=== PATIENT | male | born 1945 | race Hispanic/Latino ===

== ENCOUNTER 2016-05-13 11:29 | Emergency (ER) | payer MEDICAID ==
[~2016-05-13] VITALS: Ht 160 cm; Wt 79.5 kg
[~2016-05-13 11:29] MED LIST: ASPI-628 PO; CALC500T3 PO; CHOL100043 PO; DOCU-41 PO; GLIP-176 PO; HYDR-4003 PO; IBUP200T48 PO; INSU100I SUBQ; INSU100V7 SUBQ; LEVO50TA6 PO; LISI-571 PO; LOVA20TA PO; MECL-107 PO; NEOM10DR11 OT; SEVE800T7 PO
--- NOTE | 2016-05-13 11:31 | ED.REPORT ---
HPI-General Illness Date of Service May 13, 2016 ED Provider: Dr. Burnett 70 year old male with a history of hypothyroid, diabetes and ESRD on hemodialysis (last dialysis yesterday) who presents to the ED via EMS after he was found unresponsive by his this morning about 1 hour ago. EMS noted the patient to have a GCS 9. Initial BGL 28 increased to 88. No change in mentation. Pt was also given Narcan with no effect. VS WNL en route. Pt able to respond to questions upon arrival to the ED. He reports feeling weak and hungry. He denies CP and SOB. Nursing Notes Stated Complaint: UNRESPONSIVE Nursing Notes Reviewed: Yes Allergies: Coded Allergies: No Known Allergies (Verified Allergy, Unknown, 10/27/14) Scheduled Aspirin (Aspir 81) 81 Mg Tablet.dr 81 MG PO DAILY Cholecalciferol (Vitamin D3) (Vitamin D) 1,000 Unit Tablet 1,000 UNIT PO DAILY Glipizide ER (Glipizide XL) 10 Mg Tab.er.24 10 MG PO DAILY Insulin Aspart (NovoLOG U-100 Pen) 100 Unit/Ml Insuln.pen 5 UNIT SUBQ TIDWM SEE ALSO DIFFERENT DOSE FOR BREAKFAST AND LUNCH Insulin Glargine (Lantus U100 Insulin Vial) 100 Unit/Ml Vial 25 UNIT SUBQ DAILY DAILY EVERY MORNING Levothyroxine (Levothyroxine) 50 Mcg Tablet 50 MCG PO DAILY Lisinopril (Lisinopril) 5 Mg Tablet 5 MG PO DAILY Lovastatin (Lovastatin) 20 Mg Tablet 20 MG PO HS Neomy Sulf/Colist Sul/Hc/Thonz (Cortisporin-Tc Ear Susp) 10 Ml Drops.susp 3 DRP OT QID Sevelamer Carbonate (Renvela) 800 Mg Tablet 800 MG PO TID Scheduled PRN Docusate Sodium (Colace) 100 Mg Capsule 100 MG PO BID PRN PRN For Constipation Hydrocodone-Acetaminophen 5-325 mg (Hydrocodone-Acetaminophen 5-325 mg) 1 Each Tablet 1 TABLET PO Q6H PRN PRN For Pain Ibuprofen (Ibuprofen) 200 Mg Tablet 200-400 MG PO QID PRN PRN For Pain Meclizine HCl (Meclizine HCl) 25 Mg Tablet 12.5-25 MG PO Q6 PRN PRN vertigo Miscellaneous Medications Calcium Carbonate (Calcium Carbonate) 500 Mg Tablet 500 MG PO TWO TABLETS TWO TIMES DAILY General Time Seen by MD: 11:31 Chief Complaint Altered mental status Hx Obtained From: Patient, EMS Arrived By: Ambulance Onset Occurred: 1 - 4 hours ago Symptom Duration: Since onset Severity: Current: No pain currently Associated with: Denies: Fever, Shortness of breath Past Medical History Past Medical History Notes: Admit for CP 10/2013 for CP post dialysis - echo nl (EF 65-70%), stress test negative Past Medical History ESRD on hemodialysis Diabetic retinal disease Anemia Blindness Chronic back pain Peripheral neuropathy Reports: Diabetes mellitus, Hyperlipidemia, Hypertension Reports: Kidney disease, Thyroid disease Past Surgical History laminectomy L4-5, L5-S1 Left Arm AV Fistula ORIF right hand Reports: Cataract surgery Reports: Back/neck surgery Smoking History Never Smoker Social History Alcohol Use: Denies alcohol use Drug Use: Denies drug use Review of Systems Full Review of Systems Constitutional: Reports: Weakness - generalized, Denies: Fever Respiratory: Denies: Shortness of breath Cardiovascular: Denies: Chest pain Neurologic: Reports: Change LOC Complete sys rev & neg: except as marked. Physical Exam Vital Signs Vital Signs Date Time Temp Pulse Resp B/P Pulse Ox O2 Delivery O2 Flow Rate FiO2 05/13/16 12:33 63 12 95/51 96 Room Air 05/13/16 11:39 62 14 100 Nasal Cannula 4 05/13/16 11:37 35.4 62 15 119/63 99 Nasal Cannula 2 Initial VS: Reviewed Head / Eyes: Atraumatic, Normocephalic Neck: Supple, Non-tender, Full range of motion Respiratory: Breath sounds normal, Clear to auscultation, No respiratory distress Cardiovascular: Regular rate & rhythm, Heart sounds normal, Intact distal pulses Abdomen / GI: Soft, Non-tender, No guarding, No rebound, No distention Extremities: Vascular intact, Neuro intact, No swelling, No tenderness Skin: Warm, Dry, No cyanosis Neurologic: Alert, Oriented, Nonfocal Psychiatric: Mood/affect normal, Behavior normal, Normal thought content General/Constitutional: Awake, Alert, Cooperative Head / Eyes: Atraumatic, Normocephalic Poor vision Interpretation & Diagnostics Lab Results Interpretation Result Diagram: 05/13/16 1136 05/13/16 1136 Test 05/13/16 11:36 White Blood Count 12.4th/mm3 (3.8-10.1) Red Blood Count 4.25mil/mm3 (4.40-5.80) Hemoglobin 12.8g/dL (13.8-17.2) Hematocrit 37.9% (41.0-50.0) Mean Corpuscular Volume 89.2fL (81-100) Mean Corpuscular Hemoglobin 30.1pg (27.0-35.0) Mean Corpuscular Hemoglobin Concent 33.8% (32.0-37.0) Red Cell Distribution Width 12.5% (12.3-15.4) Platelet Count 183bil/L (150-400) Neutrophils (%) (Auto) 79.2% (40-74) Lymphocytes (%) (Auto) 10.8% (14-46) Monocytes (%) (Auto) 4.8% (4-12) Eosinophils (%) (Auto) 4.1% (0-5) Basophils (%) (Auto) 0.5% (0-3) Sodium Level 141mEq/L (134-144) Potassium Level 4.3mEq/L (3.5-5.2) Chloride Level 97mEq/L (97-108) Carbon Dioxide Level 27mmol/L (18-29) Blood Urea Nitrogen 51mg/dL (8-27) Creatinine 7.04mg/dL (0.76-1.27) Estimat Glomerular Filtration Rate 8mL/min (>59) Glucose Level 117mg/dL (60-99) Calcium Level 8.2mg/dL (8.5-10.1) Total Bilirubin 0.2mg/dL (0.0-1.2) Aspartate Amino Transf (AST/SGOT) 13U/L (0-50) Alanine Aminotransferase (ALT/SGPT) 21U/L (0-44) Alkaline Phosphatase 93U/L (25-160) Total Protein 6.4g/dL (6.4-8.4) Albumin 3.7g/dL (3.4-5.0) Hold Soto Top Tube Received (Received) General Lab Results Interp 1: Labs reviewed X-Ray Chest Interpretation Chest Xray Interpretation: IMPRESSION: Limited study given low lung volumes. Left basilar opacities may represent atelectasis or aspiration/infection. Dictated by: Ana Carrillo M.D. on 05/13/2016 at 11:56 View: Portable, 1 view Interpretation / Wet Read by: Interpret - Radiologist Re-Eval/Medical Decision Time of Eval: 15:03 Patient Status: Condition resolved Re-Evaluation/Progress Note: Patient feels back to normal and wonders why his blood sugar was so low. He said that he has been eating normally. Counseled Regarding: Diagnosis, Lab results, Need for follow-up, When/why to return to ED Discharge & Departure Primary Impression: Hypoglycemia Disposition: Home Discharge Condition All VS Reviewed: Yes Condition: Improved Patient Instructions: Diabetic Hypoglycemia (ED) Additional Instructions: No dangerous cause for your symptoms was discovered. I suspect that your balance of insulin and food intake is mismatched. If you have another low blood sugar event in the next day or 2, I recommend you follow up with your doctor to make sure that your insulin dosing is where it should be. Google Translate No se descubri ninguna causa peligrosa para fransisca sntomas. Sospecho que smith saldo de insulina y la ingesta de alimentos no coinciden. Si tiene otro episodio de bajo nivel de azcar en la tatyana en el da siguiente o 2, le recomiendo que paul un seguimiento con smith mdico para asegurarse de que smith dosis de insulina es donde debera estar. Referrals: Shantel Orellana MD (PCP) Scribe Attestation Portions of this note were transcribed by Laura Ching. I, (Dr. Burnett) personally performed the history, physical exam and medical decision-making; I reviewed and confirmed the accuracy of the information in the transcribed note. Signed by: Laura Ching. 05/13/2016, 1511 copies to: Shantel Orellana MD, Kirk H MD May 13, 2016 11:31 Laura Ching May 13, 2016 14:43
[2016-05-13 11:37] VITALS: BP 119/63; PULSE 62; RESP 15; O2SAT 99
[2016-05-13 11:39] VITALS: RESP 14; O2SAT 100
[2016-05-13 11:45] LABS: BASOPHILS % (AUTO) 0.5 % (0-3); EOSINOPHILS % (AUTO) 4.1 % (0-5); MONOCYTES % (AUTO) 4.8 % (4-12); Mean Corpuscular Hemoglobin 30.1 pg (27.0-35.0); Mean Corpuscular Volume 89.2 fL (81-100); NEUTROPHILS % (AUTO) 79.2 % (40-74); Platelet Count 183 bil/L (150-400)
--- NOTE | 2016-05-13 11:58 | DRSVH ---
PROCEDURE: X-RAY CHEST ONE VIEW, PORTABLE ([id number]) INDICATIONS: altered LOC TECHNIQUE: One view of the chest was acquired. COMPARISON: [facility], CR, XR CHEST 1VW (PORTABLE), 09/10/2015, 10:10. FINDINGS: Surgical changes and devices: None. Lungs and pleura: Lung volumes are low. Patchy opacities are present at the left lung base. There is vascular crowding. Mediastinum: Mediastinal contours appear normal. Heart size is enlarged. Bones and chest wall: No suspicious bony lesions. Overlying soft tissues appear unremarkable. IMPRESSION: Limited study given low lung volumes. Left basilar opacities may represent atelectasis or aspiration/infection. Dictated by: Ana Carrillo M.D. on 05/13/2016 at 11:56 Approved by: Ana Carrillo M.D. on 05/13/2016 at 11:57
[2016-05-13 12:33] VITALS: BP 95/51; PULSE 63; RESP 12; O2SAT 96
[2016-05-13 16:04] VITALS: BP 119/61; PULSE 67; RESP 19; O2SAT 96
== END 2016-05-13 16:05 | disposition home or self-care (01) ==
LOC: EDBD 11:29 → SED 11:29
DX: E11.649 Type 2 diabetes mellitus with hypoglycemia without coma (principal); I12.0 Hypertensive chronic kidney disease with stage 5 chronic kidney disease or end stage renal disease; E11.22 Type 2 diabetes mellitus with diabetic chronic kidney disease; N18.6 End stage renal disease; E11.319 Type 2 diabetes mellitus with unspecified diabetic retinopathy without macular edema; E78.5 Hyperlipidemia, unspecified; E07.9 Disorder of thyroid, unspecified; Z99.2 Dependence on renal dialysis; Z98.49 Cataract extraction status, unspecified eye; Z79.82 Long term (current) use of aspirin; Z79.4 Long term (current) use of insulin

== ENCOUNTER 2016-09-01 18:24 | Emergency (ER) | payer MEDICAID ==
[2016-09-01 18:40] VITALS: BP 93/48; PULSE 71; RESP 16; O2SAT 99
--- NOTE | 2016-09-01 18:53 | ED.REPORT ---
HPI-General Illness Date of Service September 01, 2016 ED Provider: The patient is a 71 year old blind male with history of end-stage renal disease on hemodialysis, diabetes mellitus, hypertension, hyperlipidemia, chronic back pain, and thyroid disease, who was brought to the emergency department by EMS. The patient states earlier today he suddenly became diaphoretic, his blood pressure was low and his blood sugar levels were elevated. His sugar level was over 400. He also felt generally weak and dizzy, and noticed some mild abdominal pain and lower extremity pain. He has extremity pain often related to exercise. En route in the ambulance he noticed a mild headache. At this time he only complains of lower extremity pain. He denies dizziness, chills, palpitations or shortness of breath. He has not had similar symptoms in the past. He has not recently been sick. The patient normally urinates 2 times each day. Nursing Notes Stated Complaint: LOWER FLANK PAIN Chief Complaint: General Complaint Nursing Notes Reviewed: Yes Allergies: Coded Allergies: No Known Allergies (Verified Allergy, Unknown, 10/27/14) Scheduled Aspirin (Aspir 81) 81 Mg Tablet.dr 81 MG PO DAILY Cholecalciferol (Vitamin D3) (Vitamin D) 1,000 Unit Tablet 1,000 UNIT PO DAILY Glipizide ER (Glipizide XL) 10 Mg Tab.er.24 10 MG PO DAILY Insulin Aspart (NovoLOG U-100 Pen) 100 Unit/Ml Insuln.pen 5 UNIT SUBQ TIDWM SEE ALSO DIFFERENT DOSE FOR BREAKFAST AND LUNCH Insulin Glargine (Lantus U100 Insulin Vial) 100 Unit/Ml Vial 25 UNIT SUBQ DAILY DAILY EVERY MORNING Levothyroxine (Levothyroxine) 50 Mcg Tablet 50 MCG PO DAILY Lisinopril (Lisinopril) 5 Mg Tablet 5 MG PO DAILY Lovastatin (Lovastatin) 20 Mg Tablet 20 MG PO HS Neomy Sulf/Colist Sul/Hc/Thonz (Cortisporin-Tc Ear Susp) 10 Ml Drops.susp 3 DRP OT QID Sevelamer Carbonate (Renvela) 800 Mg Tablet 800 MG PO TID Scheduled PRN Docusate Sodium (Colace) 100 Mg Capsule 100 MG PO BID PRN PRN For Constipation Hydrocodone-Acetaminophen 5-325 mg (Hydrocodone-Acetaminophen 5-325 mg) 1 Each Tablet 1 TABLET PO Q6H PRN PRN For Pain Ibuprofen (Ibuprofen) 200 Mg Tablet 200-400 MG PO QID PRN PRN For Pain Meclizine HCl (Meclizine HCl) 25 Mg Tablet 12.5-25 MG PO Q6 PRN PRN vertigo Miscellaneous Medications Calcium Carbonate (Calcium Carbonate) 500 Mg Tablet 500 MG PO TWO TABLETS TWO TIMES DAILY General Time Seen by MD: 18:52 Chief Complaint Multip medical complaints Hx Obtained From: Patient, Spouse, Lead Fabricator, EMS Arrived By: Ambulance Sudden in Onset?: Yes Onset Occurred: 1 - 4 hours ago Symptom Duration: Since onset Location: : Head Quality: Painful Severity: Current: Mild Severity: Maximum: Mild Recent Healthcare: No recent hospitalization, Recent doctor visit Similar Sx Previous: No Past Medical History Past Medical History ESRD on hemodialysis Diabetic retinal disease Anemia Blindness Chronic back pain Peripheral neuropathy Reports: Diabetes mellitus, Hyperlipidemia, Hypertension Reports: Thyroid disease Past Surgical History laminectomy L4-5, L5-S1 Left Arm AV Fistula ORIF right hand Reports: Cataract surgery Reports: Back/neck surgery Family History Noncontributory Smoking History Never Smoker Social History Alcohol Use: Denies alcohol use Drug Use: Denies drug use Other Social History: Good social support, Local resident Ambulatory Status Independent Review of Systems +low blood pressure, elevated blood sugar levels Full Review of Systems Constitutional: Reports: Weakness - generalized, Denies: Chills, Fever Ears / Nose / Throat: Denies: Nasal congestion Respiratory: Denies: Shortness of breath Cardiovascular: Denies: Palpitations GI: Reports: Abdominal pain, Denies: Anorexia, Diarrhea, Nausea, Vomiting Musculoskeletal: Reports: Extremity pain Skin: Reports Diaphoresis Neurologic: Reports: Dizziness, Headache, Weakness Complete sys rev & neg: except as marked. Physical Exam Vital Signs Vital Signs Date Time Temp Pulse Resp B/P Pulse Ox O2 Delivery O2 Flow Rate FiO2 09/01/16 21:18 66 16 115/58 96 Room Air 09/01/16 20:07 67 16 108/56 97 Room Air 101/56 102/56 09/01/16 18:40 36.8 71 16 93/48 99 Room Air Initial VS: Reviewed, Vital signs abnormal Head / Eyes: Atraumatic, Normocephalic, PERRL ENT: Mucous membranes moist, Conjunctiva normal, No scleral icterus Neck: Supple, Non-tender, Full range of motion Respiratory: Breath sounds normal, Clear to auscultation, No respiratory distress Cardiovascular: Regular rate & rhythm, Heart sounds normal, Intact distal pulses Lymphatic: No lymphadenopathy Extremities: Vascular intact, Neuro intact, No swelling, No tenderness Skin: Warm, Dry, No cyanosis Psychiatric: Mood/affect normal, Behavior normal, Normal thought content General/Constitutional: Awake, Alert, Cooperative Abdomen: Atraumatic, Soft, Non-tender, No guarding, No rebound, BS normoactive , No distention, No hernia, No palpable mass, No pulsatile mass Lower Extremity / Pelvis / MS: Neurologic intact, Vascular intact, No edema Decreased hair on lower extremities. Neurologic: Oriented X3, Speech NL, No motor deficits, No sensory deficits, Cerebellar NL, Memory NL Moving all extremities. Interpretation & Diagnostics Lab Results Interpretation Result Diagram: 09/01/16205109/01/161944 Test 09/01/16 19:45 09/01/16 20:13 09/01/16 20:52 Sodium Level 135mEq/L (134-144) Potassium Level 3.7mEq/L (3.5-5.2) Chloride Level 96mEq/L (97-108) Carbon Dioxide Level 26mmol/L (18-29) Blood Urea Nitrogen 20mg/dL (8-27) Creatinine 3.37mg/dL (0.76-1.27) Estimat Glomerular Filtration Rate 19mL/min (>59) Glucose Level 110mg/dL (60-99) Calcium Level 7.6mg/dL (8.5-10.1) Hold Purple Top Tube Received (Received) Hold Blue Top Tube Received (Received) Hold Red Top Tube Received (Received) Hold Soto Top Tube Received (Received) White Blood Count 5.9th/mm3 (3.8-10.1) Red Blood Count 3.59mil/mm3 (4.40-5.80) Hemoglobin 11.6g/dL (13.8-17.2) Hematocrit 34.1% (41.0-50.0) Mean Corpuscular Volume 95.0fL (81-100) Mean Corpuscular Hemoglobin 32.3pg (27.0-35.0) Mean Corpuscular Hemoglobin Concent 34.0% (32.0-37.0) Red Cell Distribution Width 12.6% (12.3-15.4) Platelet Count 159bil/L (150-400) Neutrophils (%) (Auto) 60.6% (40-74) Lymphocytes (%) (Auto) 21.6% (14-46) Monocytes (%) (Auto) 8.7% (4-12) Eosinophils (%) (Auto) 8.1% (0-5) Basophils (%) (Auto) 0.8% (0-3) ECG Interpretation ECG Interpretation: Sinus rhythm with a rate of 66 Time: 20:51 Interpreted by: ED physician Re-Eval/Medical Decision Med Decision/Clinical Course The patient's description of his symptoms and the fact that EMS could not get a blood pressure initially consistent with near syncope. The patient was feeling back to baseline upon arrival here although he still had a little bit of headache, he said it was always mild. The partial septic differential diagnoses considered were sepsis, hypoglycemia, anemia, dysrhythmia, and hypovolemia. Source of Hx: Old records, EMS, Family Time of Eval: 20:09 Re-Evaluation/Progress Note: The patient passed his road test. He is feeling much better. Counseled Regarding: Diagnosis, Lab results, Need for follow-up, When/why to return to ED Discharge & Departure Primary Impression: Near syncope Disposition: Home Discharge Condition All VS Reviewed: Yes Condition: Stable Additional Instructions: Thank you for entrusting us with your care today. Your labs today are reassuring. You symptoms may have been related to having too much fluid taken off at dialysis. Continue taking your regularly prescribed medications. Followup with your regular doctor next week for further evaluation. Seek care sooner for any new or concerning symptoms. Referrals: Shantel Orellana MD (PCP) Scribalexandra Attestation Portions of this note were transcribed by Zo Vasquez. I, Dr. Whitney personally performed the history, physical exam and medical decision-making; I reviewed and confirmed the accuracy of the information in the transcribed note. Signed by: Heavenly Zamorano, 09/01/2016 at 2115. copies to: Shantel Orellana MD, Jena M MD September 01, 2016 18:53 Zo Vasquez September 01, 2016 19:05
[2016-09-01] MEDS ORDERED: 0.9% Sodium Chloride 250 ML IV ONE (19:20)
[2016-09-01 20:07] VITALS: BP_SYST 101; BP_SYST 102; BP_SYST 108; BP_DIAS 56; PULSE 67; RESP 16; O2SAT 97
[2016-09-01 20:56] LABS: BASOPHILS % (AUTO) 0.8 % (0-3); EOSINOPHILS % (AUTO) 8.1 % (0-5); MONOCYTES % (AUTO) 8.7 % (4-12); Mean Corpuscular Hemoglobin 32.3 pg (27.0-35.0); NEUTROPHILS % (AUTO) 60.6 % (40-74); Platelet Count 159 bil/L (150-400)
[2016-09-01 21:18] VITALS: BP 115/58; PULSE 66; RESP 16; O2SAT 96
== END 2016-09-01 21:19 | disposition home or self-care (01) ==
LOC: SED 18:24 → EDUNIT# 18:24 → EDBD 18:24 → SED 21:19
DX: R55 Syncope and collapse (principal); E11.22 Type 2 diabetes mellitus with diabetic chronic kidney disease; I12.0 Hypertensive chronic kidney disease with stage 5 chronic kidney disease or end stage renal disease; N18.6 End stage renal disease; E78.5 Hyperlipidemia, unspecified; Z79.82 Long term (current) use of aspirin; Z79.4 Long term (current) use of insulin; Z99.2 Dependence on renal dialysis
CPT/HCPCS: 36415; 80048; 82948; 85025; 93005; 99285; J7050